=== PATIENT | male | born 1935 | race Caucasian/White ===

== ENCOUNTER 2016-12-16 09:46 | Emergency (ER) | payer MEDICARE, OTHER ==
[~2016-12-16] VITALS: Ht 170.2 cm; Wt 71.8 kg
[~2016-12-16 09:46] MED LIST: ACET-62 PO; AMIO200T2 PO; ASPI-558 PO; ATOR20TA59 PO; CALC1TAB PO; CLOP75TA PO; DOCU100C19 PO; EYE15DRO BOTH EYES; EYEPROMISE PO; FURO20TA4 PO; LEVO100T12 PO; MULT-447 PO; NITR0.4T39 SL; POTA10TA10 PO; SODIUM CHLORIDE 5% BOTH EYES; WARF2TAB6 PO
--- OUTSIDE RECORDS SUMMARY | 2016-12-16 09:52 | XMS REPORT | Continuity of Care Document ---
Author Author [facility] Organization [facility] Address Unknown Phone Unavailable Allergies Active Description Code Type Severity Reaction Onset Reported/Identified Relationship to Patient Clinical Status Yes benazepril NKMA N/A angioedema 01/14/2014 Yes telmisartan NKMA N/A hives 01/14/2014 Yes beta blockers NKMA N/A [id number] 03/06/2014 Medications Medication Packaging Start Date Stop Date Route Dosage Sig diltiazem(diltiazem 120 mg oral tablet) 1 tabs 02/18/201403/10 Oral 120 mg 1 tabs, Oral, BID, 60 tabs aspirin(aspirin) 03/06/2014 Oral 81 mg 81 mg, Oral, Daily levothyroxine(levothyroxine 100 mcg (0.1 mg) oral tablet) 1 tabs 03/06/2014 11/19/2014 Oral 100 mcg 1 tabs, Oral, Daily calcium gluconate(calcium gluconate 500 mg oral tablet) 1 tabs 03/06/2014 Oral 500 mg 500 mg=1 tabs, Oral, BID, 0 Refill(s) diltiazem(diltiazem 120 mg oral tablet) 1 tabs 03/10/201406/18 Oral 120 mg 1 tabs, Oral, BID, take 1.5 tabs bid, 180 tabs diltiazem(diltiazem 120 mg oral tablet) 09/15/20142014 See Instructions, 1.5 tabs Oral BID 90 days, 135 tabs pneumococcal 13-valent conjugate vaccine(pneumococcal 13- valent conjugate vaccine) 0.5 mL 11/18/2014 11/18/2014 IntraMuscular 0.5 mL , IntraMuscular, Once levothyroxine(levothyroxine 100 mcg (0.1 mg) oral tablet) 11/19/2014 11/24/2015 See Instructions, TAKE 1 BY MOUTH EVERY DAY., 90 unknown unit mupirocin topical(Bactroban) 1 greg 01/28/2015 02/04/2015 Nasal 1 greg, Nasal, BID allopurinol(Zyloprim) 2 tabs 01/28/2015 02/04/2015 Oral 600 mg 600 mg=2 tabs, Oral, Daily acetaminophen(acetaminophen) 1 supp 01/28/2015 02/04/2015 Rectal 650 mg 650 mg=1 supp, Rectal, q4hr, PRN: Pain Mild (1-3) zolpidem(Ambien) 1 tabs 01/28/2015 02/04/2015 Oral 5 mg 5 mg=1 tabs, Oral, Bedtime (once a day), PRN: Insomnia sodium chloride, hypertonic, ophthalmic(Moon 128 5% ophthalmic solution) 1 drops 02/01/2015 Eye-Both 1 drops, Eye-Both, Bedtime (once a day), 0 Refill(s) levothyroxine(levothyroxine) 1 tabs 02/04/2015 02/12/2015 Oral 100 mcg 100 mcg=1 tabs, Oral, Daily metoclopramide(Reglan) 2 mL 02/04/2015 02/12/2015 IV Push 10 mg 10 mg=2 mL, IV Push, q6hr, PRN: Nausea HYDROcodone-acetaminophen([place] 5 mg-325 mg oral tablet) 02/04/2015 02/12/2015 Oral 1-2 tabs, Oral, q4hr, PRN: Pain Moderate (4-6) docusate(Colace) 2 caps 02/04/2015 02/12/2015 Oral 200 mg 200 mg=2 caps, Oral, Daily morphine(morphine) 02/04/2015 02/12/2015 IV Push 2-4 mg, IV Push, q2hr, PRN: Pain Severe (7-10) ondansetron(Zofran) 2 mL 02/04/2015 02/12/2015 IV Push 4 mg 4 mg= 2 mL, IV Push, q6hr, PRN: Nausea glucagon(glucagon) 1 mL 02/04/2015 02/12/2015 IntraMuscular 1 mg 1 mg=1 mL, IntraMuscular, As Indicated, PRN: Hypoglycemia/Low Blood Sugar Al hydroxide/Mg hydroxide/simethicone(Maalox Advanced Maximum Strength oral suspension) 15 mL 02/04/2015 02/12/2015 Oral 15 mL, Oral, q4hr, PRN: GERD/Heartburn Sodium Chloride 0.9%(Sodium Chloride 0.9% 250 mL) 250 mL 02/04/2015 02/05/2015 IV 10 mL/hr, IV polyethylene glycol 3350(MiraLax) 1 packets 02/04/20152014 Oral 17 g 17 g=1 packets, Oral, Daily albuterol(albuterol 5 mg/mL (0.5%) inhalation solution) 0.5 mL 02/04/2015 02/07/2015 NEB 2.5 mg 2.5 mg=0.5 mL, NEB, q4hr (scheduled), PRN: Other (See Comment) Dextrose 50% in Water(Dextrose 50% in Water Injection) 25 mL 02/04/2015 02/12/2015 IV Push 12.5 g 12.5 g=25 mL, IV Push, q15min, PRN: Hypoglycemia/Low Blood Sugar Dextrose 10% in Water(Dextrose 10% in Water 250 mL) 250 mL 02/04/2015 02/05/2015 IV 50 mL/hr, IV heparin(heparin) 1 mL 02/04/2015 02/12/2015 SubCutaneous 5,000 units 5,000 units=1 mL, SubCutaneous, TID senna(Senokot) 1 tabs 02/04/2015 02/12/2015 Oral 8.6 mg 8.6 mg=1 tabs, Oral, BID acetaminophen(acetaminophen) 1 supp 02/04/2015 02/12/2015 Rectal 650 mg 650 mg=1 supp, Rectal, q4hr, PRN: Fever aspirin(aspirin) 1 tabs 02/04/2015 02/12/2015 Oral 81 mg 81 mg= 1 tabs, Oral, With Breakfast magnesium sulfate(magnesium sulfate) 100 mL 02/04/20152014 IV Piggyback 4 g 4 g=100 mL, 25 mL/hr, IV Piggyback, Daily, PRN: Other (See Comment) potassium chloride(potassium chloride 10 mEq/50 mL intravenous solution) 50 mL 02/04/2015 02/06/2015 IV Piggyback 10 mEq 10 mEq=50 mL, 50 mL/hr, IV Piggyback, q1hr, PRN: Other (See Comment) calcium carbonate(calcium carbonate) 2 tabs 02/04/20152014 Oral 2,500 mg 2,500 mg=2 tabs, Oral, TID, PRN: Other (See Comment) calcium gluconate(calcium gluconate) 10 mL 02/04/20152014 IV Piggyback 1,000 mg 1,000 mg=10 mL, 50 mL/hr, IV Piggyback, Once albumin human(albumin human 5% intravenous solution) 500 mL 02/04/2015 02/04/2015 IV Piggyback 25 g 25 g=500 mL, 250 mL/hr, IV Piggyback, Once albumin human(albumin human 5% intravenous solution) 250 mL 02/04/2015 02/04/2015 IV Piggyback 12.5 g 12.5 g=250 mL, 250 mL/hr, IV Piggyback, Once sodium bicarbonate(sodium bicarbonate 8.4% intravenous solution) 50 mL 201402/04/2015 IV Push 50 mEq 50 mEq=50 mL, IV Push, Once albumin human(albumin human 5% intravenous solution) 500 mL 02/04/2015 02/04/2015 IV Piggyback 25 g 25 g=500 mL, 500 mL/hr, IV Piggyback, Once famotidine(Pepcid) 1 tabs 02/05/2015 02/12/2015 Oral 20 mg 20 mg= 1 tabs, Oral, q12hr furosemide(Lasix) 2 mL 02/05/2015 02/12/2015 IV Push 20 mg 20 mg =2 mL, IV Push, BID atorvastatin(Lipitor) 1 tabs 02/05/2015 02/12/2015 Oral 20 mg 20 mg=1 tabs, Oral, Daily tamsulosin(Flomax) 1 caps 02/05/2015 02/12/2015 Oral 0.4 mg 0.4 mg=1 caps, Oral, Daily albumin human(albumin human 5% intravenous solution) 250 mL 02/06/2015 02/06/2015 IV Piggyback 12.5 g 12.5 g=250 mL, IV Piggyback, Once nitroglycerin(Nitrostat 0.4 mg sublingual tablet) 1 tabs 02/06/2015 02/12/2015 SubLingual 0.4 mg 0.4 mg=1 tabs, SubLingual, q5min, PRN: Angina/ Chest Pain ibuprofen(ibuprofen) 1 tabs 02/06/2015 02/12/2015 Oral 200 mg 200 mg=1 tabs, Oral, TID, PRN: Pain Moderate (4-6) amiodarone(amiodarone) 3 mL 02/06/2015 02/07/2015 IV Piggyback 150 mg 150 mg=3 mL, 600 mL/hr, IV Piggyback, Once lactulose(lactulose) 30 mL 02/07/2015 02/10/2015 Oral 20 g 20 g= 30 mL, Oral, TID amiodarone(amiodarone) 1 tabs 02/08/2015 02/12/2015 Oral 200 mg 200 mg=1 tabs, Oral, Daily magnesium sulfate(magnesium sulfate) 50 mL 02/08/20152014 IV Piggyback 2 g 2 g=50 mL, 25 mL/hr, IV Piggyback, Once potassium chloride(potassium chloride 20 mEq oral tablet, extended release) 2 tabs 02/08/2015 02/08/2015 Oral 40 mEq 40 mEq=2 tabs, Oral, Once calcium gluconate(calcium gluconate) 20 mL 02/09/20152014 IV Piggyback 2 g 2 g=20 mL, 25 mL/hr, IV Piggyback, Once, PRN: Other (See Comment) amiodarone(amiodarone) 3 mL 02/09/2015 02/09/2015 IV Piggyback 150 mg 150 mg=3 mL, 600 mL/hr, IV Piggyback, Once metoprolol(Lopressor) 0.5 tabs 02/09/2015 02/12/2015 Oral 12.5 mg 12.5 mg=0.5 tabs, Oral, BID warfarin(Coumadin) 1 tabs 02/09/2015 02/09/2015 Oral 4 mg 4 mg=1 tabs, Oral, Once warfarin(Coumadin) 1 tabs 02/10/2015 02/10/2015 Oral 7.5 mg 7.5 mg=1 tabs, Oral, Once amiodarone(amiodarone) 1 tabs 02/10/2015 02/12/2015 Oral 200 mg 200 mg=1 tabs, Oral, Daily amiodarone(amiodarone) 1 tabs 02/11/2015 02/11/2015 Oral 200 mg 200 mg=1 tabs, Oral, Once warfarin(Coumadin) 1 tabs 02/11/2015 02/11/2015 Oral 5 mg 5 mg=1 tabs, Oral, Once phenol topical(Cepastat) 1 lozenges 02/11/2015 02/12/2015 Oral 1 lozenges, Oral, q2hr, PRN: Sore Throat potassium chloride(potassium chloride 10 mEq oral tablet, extended release) 1 tabs 02/12/2015 02/12/2015 Oral 10 mEq 10 mEq=1 tabs, Oral, Daily furosemide(Lasix) 1 tabs 02/12/2015 02/12/2015 Oral 20 mg 20 mg= 1 tabs, Oral, Daily acetaminophen(acetaminophen 325 mg oral tablet) 2 tabs 02/12/2015 Oral 650 mg 650 mg=2 tabs, Oral, q4hr, PRN: Fever, 0 Refill(s) amiodarone(amiodarone 200 mg oral tablet) 1 tabs 02/12/2015 Oral 200 mg 200 mg=1 tabs, Oral, Daily, 30 tabs, 0 Refill(s) atorvastatin(Lipitor 20 mg oral tablet) 1 tabs 02/12/201503/16 Oral 20 mg 20 mg=1 tabs, Oral, Daily, 30 tabs, 0 Refill(s) metoprolol(metoprolol tartrate 25 mg oral tablet) 0.5 tabs 02/12/2015 02/17/2015 Oral 12.5 mg 12.5 mg=0.5 tabs, Oral, BID, 30 tabs, 0 Refill(s) HYDROcodone-acetaminophen([place] 5 mg-325 mg oral tablet) 02/12/2015 04/15/2015 Oral 1-2 tabs, Oral, q4hr, PRN: Pain Moderate (4-6), 50 tabs , 0 Refill(s) potassium chloride(potassium chloride 10 mEq oral tablet, extended release) 1 tabs 02/12/2015 Oral 10 mEq 10 mEq=1 tabs, Oral, Daily, 30 tabs, 0 Refill(s) nitroglycerin(Nitrostat 0.4 mg sublingual tablet) 1 tabs 02/12/2015 SubLingual 0.4 mg 0.4 mg=1 tabs, SubLingual, q5min, PRN: Angina/Chest Pain , 25 tabs, 0 Refill(s) furosemide(Lasix 20 mg oral tablet) 1 tabs 02/12/20152015 Oral 20 mg 20 mg=1 tabs, Oral, Daily, 30 tabs, 0 Refill(s) docusate(Colace 100 mg oral capsule) 2 caps 02/12/20152014 Oral 200 mg 200 mg=2 caps, Oral, Daily, 60 caps, 0 Refill(s) famotidine(Pepcid 20 mg oral tablet) 1 tabs 02/12/20152014 Oral 20 mg 20 mg=1 tabs, Oral, q12hr, 60 tabs, 0 Refill(s) amiodarone(amiodarone 200 mg oral tablet) 1 tabs 02/12/2015 Oral 200 mg 200 mg=1 tabs, Oral, Once a Day (before meals), 60 tabs, 0 Refill(s) warfarin(warfarin 2 mg oral tablet) 1 tabs 03/16/20152014 Oral 2 mg 2 mg=1 tabs, Oral, Daily, take as directed, 100 tabs, 3 Refill(s) atorvastatin(Lipitor 20 mg oral tablet) 1 tabs 03/16/201510/11 Oral 20 mg 20 mg=1 tabs, Oral, Daily, 30 tabs, 6 Refill(s) warfarin(warfarin 2 mg oral tablet) 1 tabs 05/06/20152014 Oral 2 mg 2 mg=1 tabs, Oral, Daily, take as directed, 100 tabs, 1 Refill(s) atorvastatin(atorvastatin 20 mg oral tablet) 10/11/201503/13 See Instructions, TAKE 1 TABLET BY MOUTH EVERY DAY, 30 tabs, 4 Refill(s ) levothyroxine(levothyroxine 100 mcg (0.1 mg) oral tablet) 11/24/2015 02/21/2016 See Instructions, TAKE 1 BY MOUTH EVERY DAY., 90 unknown unit polyethylene glycol 3350(MiraLax) 01/14/2016 Oral g g, Oral , Daily, PRN: as needed for constipation, 0 Refill(s) levothyroxine(levothyroxine 100 mcg (0.1 mg) oral tablet) 02/21/2016 05/18/2016 See Instructions, TAKE 1 TABLET BY MOUTH EVERY DAY, 90 tabs atorvastatin(atorvastatin 20 mg oral tablet) 03/13/201609/12 See Instructions, TAKE 1 TABLET BY MOUTH EVERY DAY, 30 tabs, 5 Refill(s ) amiodarone(amiodarone 200 mg oral tablet) 1 tabs 04/14/2016 Oral 200 mg 200 mg=1 tabs, Oral, Once a Day (before meals), 90 tabs, 0 Refill(s) levothyroxine(levothyroxine 100 mcg (0.1 mg) oral tablet) 05/18/2016 08/23/2016 See Instructions, TAKE 1 TABLET BY MOUTH EVERY other day and 0.5 tab every other day lab in 2 months, 90 tabs clopidogrel(Plavix) 07/11/2016 Oral 75 mg 75 mg, Oral, Daily , 0 Refill(s) influenza virus vaccine, inactivated(influenza virus vaccine, inactivated) 0.5 mL 07/11/2016 07/11/2016 IntraMuscular 0.5 mL, IntraMuscular, Once levothyroxine(levothyroxine 100 mcg (0.1 mg) oral tablet) 08/23/2016 See Instructions, TAKE 1 TABLET BY MOUTH EVERY DAY, 90 tabs atorvastatin(atorvastatin 20 mg oral tablet) 09/12/2016 See Instructions, TAKE 1 TABLET BY MOUTH EVERY DAY, 30 tabs, 4 Refill(s) Problems Procedures Results Test Result Range Protime (INR) - 07/11/16 09:18 INR 1.9 NA 0.8-1.2 Prothrombin Time Venous seconds TSH with Reflex Free T4 - 07/11/16 09:18 TSH with Reflex Free T4 0.28 uIU/mL 0.35- 4.94 Free T4 - 07/11/16 09:18 Free T4 1.1 ng/dL 0.7-1.5 Encounters ACCT No. Visit Date/Time Discharge Status Pt. Type Provider Facility Loc./Unit Complaint [id number] 11/20/2013 09:09:00 11/20/2013 23 :59:59 CLS Outpatient
--- OUTSIDE RECORDS SUMMARY | 2016-12-16 09:52 | XMS REPORT | Referral Summary ---
Author Author [facility] Organization [facility] Address Unknown Phone Unavailable Care Team Providers Care Lead Military Analyst Name Role Phone Sinan Chu Primary Care Physician [phone] Encounter VC Date(s): 08/28/16 - 08/28/16 [facility] [address] [place] [id number] Discharge Diagnosis: Hypothyroidism Discharge Diagnosis: HTN (hypertension) Discharge Diagnosis: Syncope Discharge Diagnosis: Coronary atherosclerosis Discharge Disposition: 01-Home or Self Care Attending Physician: Hank Chu MD Vital Signs Most recent to 1 oldest [Reference Range]: Temperature Tympanic 36.5 degC [36.6-38.1 degC] *LOW* (08/28/16 11:15 AM) Peripheral Pulse 84 bpm Rate [60-100 bpm] (08/28/16 11:15 AM) Respiratory Rate 16 br/min [14-20 br/min] (08/28/16 11:15 AM) Blood Pressure 172/104 mmHg [90-140/60-90 mmHg] *HI* (08/28/16 11:15 AM) Problem List Condition Effective Dates Status Health Status Informant Acute Active pain(Confirmed) At risk for Active infection(Confirmed) 1 At risk for Active injury(Confirmed)2 At risk of pressure Active sore(Confirmed) Passed Active patient out(Confirmed) Bowel Active dysfunction(Confirme d)3 BPH(Confirmed) Active Cardiac Active disorder(Confirmed)4 Heart Active patient murmur(Confirmed) HTN Active (hypertension)(Confi rmed) Hypothyroidism(Confi Active rmed) Impaired skin Active integrity(Confirmed) 5 Ineffective airway Active clearance(Confirmed) 6 Knowledge Active deficit(Confirmed)7 Tissue perfusion Active alteration(Confirmed )8 1Problem added automatically by system based on initiation of At Risk for Infection in Nutrition Plan of Care 2Problem added automatically by system based on initiation of Risk for Injury Plan of Care 3Problem added automatically by system based on initiation of Bowel Dysfunction Plan of Care 4Problem added automatically by system based on initiation of Cardiac Output/ Ineffective Cardiac Perfusion Plan of Care 5Problem added automatically by system based on initiation of Impaired Skin Integrity Plan of Care 6Problem added automatically by system based on initiation of Ineffective Airway Clearance Plan of Care 7Problem added automatically by system based on initiation of Knowledge Deficit Plan of Care 8Problem added automatically by system based on initiation of Tissue Perfusion Cerebral Plan of Care Allergies, Adverse Reactions, Alerts Substance Reaction Severity Status benazepril angioedema Active beta blockers Pulse slow Active telmisartan hives Active Medications acetaminophen 325 mg oral tablet 650 mg 2 tabs, Oral, q4hr, Fever, 0 Refill(s) Start Date: 02/12/15 Status: Ordered amiodarone 200 mg oral tablet 200 mg 1 tabs, Oral, Once a Day (before meals), # 90 tabs, 0 Refill(s), Pharmacy : [facility] [id number], 1 tabs Oral Once a Day (before meals) Start Date: 04/14/16 Status: Ordered aspirin 81 mg, Oral, Daily, 0 Refill(s) Start Date: 03/06/14 Status: Ordered atorvastatin 20 mg oral tablet See Instructions, TAKE 1 TABLET BY MOUTH EVERY DAY, # 30 tabs, 5 Refill(s), eRx : [facility] [id number], TAKE 1 TABLET BY MOUTH EVERY DAY Start Date: 03/13/16 Status: Ordered calcium gluconate 500 mg oral tablet 500 mg 1 tabs, Oral, BID, 0 Refill(s) Start Date: 03/06/14 Status: Ordered Colace 100 mg oral capsule See Instructions, 2 CAPS ORAL DAILY, # 60 caps, 10 Refill(s), eRx: [facility] [id number], 2 CAPS ORAL DAILY Start Date: 07/19/15 Status: Ordered Eye Health Formula 1 caps, Oral, Daily, 0 Refill(s) Start Date: 03/06/14 Status: Ordered FreshKote 1 drops, Eye-Both, TID, 0 Refill(s) Start Date: 01/14/15 Status: Ordered levothyroxine 100 mcg (0.1 mg) oral tablet See Instructions, TAKE 1 TABLET BY MOUTH EVERY DAY, # 90 tabs, eRx: [facility] [id number], TAKE 1 TABLET BY MOUTH EVERY DAY Start Date: 08/23/16 Status: Ordered MiraLax g, Oral, Daily, as needed for constipation, 0 Refill(s) Start Date: 01/14/16 Status: Ordered Moon 128 5% ophthalmic solution 1 drops, Eye-Both, Bedtime (once a day), 0 Refill(s) Start Date: 02/01/15 Status: Ordered Nitrostat 0.4 mg sublingual tablet 0.4 mg 1 tabs, SubLingual, q5min, Angina/Chest Pain, # 25 tabs, 0 Refill(s), Pharmacy: [facility] [id number], 1 tabs SubLingual q5min,PRN:Angina/Chest Pain Start Date: 02/12/15 Status: Ordered Non-Formulary Med EYE PROMISE RESTORE - 1 TAB, Oral, Daily, 0 Refill(s) Start Date: 02/01/15 Status: Ordered Plavix 75 mg, Oral, Daily, 0 Refill(s) Start Date: 07/11/16 Status: Ordered potassium chloride 10 mEq oral tablet, extended release 10 mEq 1 tabs, Oral, Daily, # 30 tabs, 0 Refill(s), Pharmacy: [facility] [id number], 1 tabs Oral Daily Start Date: 02/12/15 Status: Ordered warfarin 2 mg oral tablet See Instructions, TAKE 1& 1/2 TABLETS BY MOUTH DAILY FOR 2 DAYS, THEN 1 TABLET BY MOUTH DAILY FOR 1 DAY, THEN REPEAT OR DOCTOR RECOMMENDS, # 100 tabs, 5 Refill(s), eRx: [facility] [id number], TAKE 1& 1/2 TABLETS BY MOUTH DAILY FOR 2 DAYS, THEN... 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 Plan repeat colonoscopy in 3 years (11/11/2011) letter set up Social History Social History Type Response Smoking Status Never smoker Assessment and Plan Extracted from: Title: Office Visit Note Author: Hank Chu MD Date: 08/28/16 Assessment/Plan 1.HTN (hypertension) Blood pressures running high here today I reviewed all of his readings at home and he's had some readings down into the 70s and 80s over 40s to 50s. During these episodes is when he often feels dizzy or lightheaded. I've recommended a follow-up with Dr. Jung. I'm concerned that he may be having further dysrhythmia despite his pacemaker that is contributing to these hypotensive episodes and may have contributed to his syncopal spell last week. We have made an appointment on 05 September. He'll continue to monitor his blood pressures and keep us posted on with her doing. 2.Hypothyroidism Chronic stable no change in current treatment. 3.Syncope Follow up with Dr. Jnug as mentioned above. He had questions as to whether these spells could be seizures. I told him that I thought it was unlikely but we'll see what Dr. Jnug says that if he recommends a neurology consult will help arrange that. 4.Coronary atherosclerosis Chronic relatively stable no signs of angina no change in current treatment.
--- OUTSIDE RECORDS SUMMARY | 2016-12-16 09:52 | XMS REPORT | Continuity of Care Document ---
Author Author URIAH [facility] Organization [facility] Address Unknown Phone Unavailable Support Name Relationship Address Phone SRINIVAS PICHARDO MD Caregiver [address] [place] [id number] Unavailable TOSIN DOWELL MD Caregiver [address] [place] [address] Unavailable VARGHESE LACKEY Next Of Kin [address] [place] [address] Insurance Providers Guarantor Carli Lackey Address [address] [place] [address] Email [email or web address] Payer Medicare Policy Number [id number] Subscriber's Name Carli Lackey Relationship 18 Self Payer [facility] Policy Number [id number] Subscriber's Name Carli Lackey Relationship 18 Self Group Number [id number] Advance Directives Directive Response Recorded Date/Time Advanced Directives Type DPOA for Healthcare 08/22/16 8:20am Chief Complaint and Reason for Visit Chief Complaint Syncope Reason for Visit [id number] Problems Active Problems Medical Problem Onset Date Status Aortic stenosis, severe Unknown Chronic Bradycardia Unknown Acute Carotid bruit Unknown Acute Complete heart block Unknown Acute Constipation Unknown Acute Coronary artery disease Unknown Chronic Essential (primary) hypertension Unknown Chronic Heart murmur on physical examination Unknown Acute Hypothyroidism Unknown Chronic 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 Paroxysmal atrial fibrillation Unknown Chronic Symptomatic bradycardia Unknown Acute Syncopal episodes Unknown Acute Syncope Unknown Acute Surgical Problem Onset Date Status 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 81 Mg Oral Daily 11/11/08 Atorvastatin Calcium 20 Mg Tablet 1 Tab Oral Bedtime 02/28/16 Calcium Carbonate/Vitamin D3 (Caltrate 600 + D Tablet) 1 Each Tablet 1 Tab Oral Twice A Day 01/09/15 Clopidogrel Bisulfate (Plavix) 75 Mg Tablet 75 Mg Oral Daily 30 Days 30 Tablet 06/27/16 Docusate Sodium (Doc-Q-Lace) 100 Mg Capsule 1 Cap Oral Daily as needed for Constipation 03/21/16 Eye Lubricant Combination No.1 (Freshkote) 15 Ml Drops 1 Drop Ophthalmic Daily 15 01/09/15 Eyepromise 1 Tab Oral Daily 01/09/15 Furosemide 20 Mg Tablet 1 Tab Oral Every Other Day 02/28/16 Levothyroxine Sodium 100 Mcg Tablet 1 Tab Oral Before Breakfast Once daily before breakfast 02/28/16 Multivitamin With Minerals (Men's One Daily) 1 Each Tablet 1 Tab Oral Daily 01/09/15 Nitroglycerin 0.4 Mg Tab.subl 0.4 Mg Sublingual as needed for Chest Tightness 03/21/16 Potassium Chloride (Klor-Con 10) 10 Meq Tablet.er 1 Tab Oral Every Other Day 02/28/16 Sodium Chloride 5% 1 Drop Both Eyes Bedtime 02/28/16 Warfarin Sodium 2 Mg Tablet 1 Tab Oral As Directed 90 Tablet 2MG EVERY OTHER DAY, 3MG ON OTHER DAY (EVERY OTHER DAY) 02/28/16 Past Home Medications Medication Directions Ordered Status Acetaminophen 500 Mg Tablet, 1 Tab Oral Every 6 Hours 03/21/16 Discontinued Amlodipine Besylate 5 Mg Tablet, 5 Mg Oral Daily 03/17/16 Discontinued Amlodipine Besylate (Norvasc) 5 Mg Tablet, 5 Mg Oral Daily 01/12/15 Discontinued Amlodipine Besylate (Norvasc) 5 Mg Tablet, 5 Mg Oral 1/2 Daily 11/11/08 Discontinued Benazepril Hcl 20 Mg Tablet, 20 Mg Oral Daily 11/11/08 Discontinued Diltiazem Hcl (Cartia Xt) 120 Mg Cap.sr.24h, 180 Mg Oral Twice A Day Discontinued Levothyroxine Sodium 25 Mcg Tablet, 0.1 Mg Oral Daily 11/11/08 Discontinued Polyethylene Glycol 3350 (Miralax) 17 Gm Powd.pack, 1 Packet Oral Daily 03/21 Discontinued Red Yeast Rice Extract (Red Yeast Rice) 600 Mg Capsule, 600 Mg Oral Twice A Day 02/23/12 Discontinued Saw Seymour 1,000 Mg Capsule, 1000 Mg Oral Daily 11/11/08 Discontinued Saw Seymour Fruit (Saw Seymour) 450 Mg Capsule, Daily 01/09/15 Discontinued Tamsulosin Hcl (Flomax) 0.4 Mg Cap.sr.24h, 0.4 Mg Oral Q O D 11/11/08 Discontinued Social History Social History Problem Response Recorded Date/Time Onset Date Status Hx Substance Use No 08/22/2016 8:42am Not Applicable Not Applicable Hx Alcohol Use No 08/22/2016 8:42am Not Applicable Not Applicable Has the pt used tobacco in the last 12 months No 06/23/2016 9:06am Not Applicable Not Applicable Tobacco Usage none 02/28/2016 2:02pm Not Applicable Not Applicable Query Response Start Date Stop Date Smoking Status Never smoker Hospital Discharge Instructions No hospital discharge instructions. Plan of Care Discharge Date 08/22/16 11:28am Disposition 01 DISCHARGED HOME, SELF-CARE Condition at Discharge Improved Instructions/Education Provided Fainting Orthostatic Hypotension Prescriptions See Medication Section Referrals TOSNI DOWELL MD Order Date: 2 Days Address: [address] [place] [address] [phone] Note: Additional Instructions/Education 1) DRINK PLENTY OF FLUIDS ESPECIALLY WATER 2) CONTINUE HOME MEDICATIONS DIRECTED 3) FOLLOW UP WITH DR. DOWELL IN NEXT 2-3 DAYS FOR RE-EVALUATION 4) RETURN TO ER FOR WORSENING SYMPTOMS OR FURTHER CONCERNS. Care Plan and Goals Physician Care Plan Problem: 1) POSTURAL DIZZINESS WITH NEAR SYNCOPE Goal: Follow up with primary care provider 1) DR. DOWELL Instructions: Take medications and follow care plan as discussed/written Functional Status No functional status results. Allergies, Adverse Reactions, Alerts Allergen Type Severity Reaction Status Last Updated Beta-Blockers (Beta-Adrenergic Bloc Allergy Unknown Active 08/22/16 Amlodipine Allergy Unknown Active 08/22/16 Immunizations Query Response on File Recorded Date/Time Hx Influenza Vaccination No 06/23/16 9:06am Hx Pneumococcal Vaccination Y 201306/23/16 9:06am Hx Influenza Vaccination No 06/23/16 9:06am Vital Signs Acute Vital Signs Vital Response Date/Time Temperature (Fahrenheit) 97.6 deg F (96.8 - 99.1) 08/22/2016 11:28am Temperature (Calculated Celsius) 36.84648 degrees C (36.0 - 37.3) 08/22/2016 11:28am Temperature Source Oral 06/26/2016 5:25pm Pulse Rate (adult) 60 bpm (60 - 100) 08/22/2016 11:28am Respiratory Rate 14 breaths/min (10 - 20) 08/22/2016 11:28am O2 Sat by Pulse Oximetry 99 % (90 - 100) 08/22/2016 11:28am Oxygen Delivery Method Room Air 06/26/2016 5:25pm Oxygen Delivery Method Room Air 06/27/2016 8:01am Blood Pressure 167/85 mm Hg 08/22/2016 11:28am Blood Pressure Source Automatic Cuff 06/27/2016 8:01am Height (Feet) 5 feet 08/22/2016 8:20am Height (Inches) 9.00 inches 08/22/2016 8:20am Weight (Kilograms) 70.900 kg 08/22/2016 8:20am Body Mass Index (BMI) 23.0 08/22/2016 8:20am Results Laboratory Results Test Name Result Units Flags Reference Collection Date/Time Result Date/ Time Comments Prothromb Time International Ratio 1.16 0.99-1.21 06/26/2016 2:54pm 06/26/2016 3:20pm THERAPUTIC RANGE=2.00-3.00 FOR ANTI-THROMBOSIS THERAPUTIC RANGE=2.50-3.50 FOR IMPLANTED VALVE White Blood Count 8.7 T/MM3 4.5-11.0 08/22/2016 9:03am 08/22/2016 9: 19am Red Blood Count 4.50 M/MM3 4.50-5.90 08/22/2016 9:03am 08/22/2016 9: 19am Hemoglobin 12.0 GM/DL L 13.5-17.5 08/22/2016 9:03am 08/22/2016 9:19am Hematocrit 36.8 % L 41-53 08/22/2016 9:03am 08/22/2016 9:19am Mean Corpuscular Volume 81.8 UM3 80-100 08/22/2016 9:03am 08/22/2016 9: 19am Mean Corpuscular Hemoglobin 26.7 UUG 26-34 08/22/2016 9:03am 2015 9:19am Mean Corpuscular Hemoglobin Concent 32.6 GM/DL 31-37 08/22/2016 9:03am 08/22/2016 9:19am RDW Standard Deviation 57.2 FL H 36.9-50.2 08/22/2016 9:03am 08/22/2016 9:19am Platelet Count 394 T/MM3 130-400 08/22/2016 9:03am 08/22/2016 9:19am Mean Platelet Volume 9.7 UM3 9.4-12.4 08/22/2016 9:03am 08/22/2016 9: 19am Neutrophils (%) (Auto) 48.8 % 33-66 08/22/2016 9:03am 08/22/2016 9: 19am Lymphocytes (%) (Auto) 40.5 % 23-45 08/22/2016 9:03am 08/22/2016 9: 19am Monocytes (%) (Auto) 5.0 % 0-9.0 08/22/2016 9:03am 08/22/2016 9:19am Eosinophils (%) (Auto) 4.7 % H 0-4 08/22/2016 9:03am 08/22/2016 9:19am Basophils (%) (Auto) 0.9 % 0-2 08/22/2016 9:03am 08/22/2016 9:19am Immature Granulocyte % (Auto) 0.1 % 0.0-0.5 08/22/2016 9:03am 2015 9:19am Absolute Neutrophils (auto) 4.2 T/MM3 1.8-7.7 08/22/2016 9:03am 2015 9:19am Absolute Lymphocytes (auto) 3.5 T/MM3 1-4.8 08/22/2016 9:03am 2015 9:19am Absolute Monocytes (auto) 0.4 T/MM3 0-0.8 08/22/2016 9:03am 08/22/2016 9:19am Absolute Eosinophils (auto) 0.4 T/MM3 0-0.5 08/22/2016 9:03am 2015 9:19am Absolute Basophils (auto) 0.1 T/MM3 0-0.2 08/22/2016 9:03am 08/22/2016 9:19am Absolute Immature Granulocyte (auto 0.01 T/MM3 0.00-0.03 08/22/2016 9: 03am 08/22/2016 9:19am Icterus Index < 2 0-7 08/22/2016 9:0308/22/2016 9:30am Chemistry Specimen Hemolysis < 15 0-25 08/22/2016 9:0308/22/2016 9 :30am 0-25: Specimen Exhibited No Hemolysis. Turbidity < 20 0-20 08/22/2016 9:03am 08/22/2016 9:30am Sodium Level 144 MEQ/L 134-144 08/22/2016 9:03am 08/22/2016 9:30am Potassium Level 4.3 MEQ/L 3.6-5 08/22/2016 9:03am 08/22/2016 9:30am Chloride Level 106 MEQ/L 98-107 08/22/2016 9:03am 08/22/2016 9:30am Carbon Dioxide Level 24 MEQ/L 22-30 08/22/2016 9:03am 08/22/2016 9: 30am Anion Gap 14 MEQ/L 5-15 08/22/2016 9:03am 08/22/2016 9:30am Blood Urea Nitrogen 16.0 MG/DL 9-20 08/22/2016 9:03am 08/22/2016 9: 30am Creatinine 1.4 MG/DL 0.8-1.5 08/22/2016 9:0308/22/2016 9:30am BUN/Creatinine Ratio 11 RATIO 6-26 08/22/2016 9:0308/22/2016 9:30am Glomerular Filtration Rate Calc 49 08/22/2016 9:0308/22/2016 9: 30am Glucose Level 116 MG/DL H 75-110 08/22/2016 9:0308/22/2016 9:30am Calculated Osmolality 279 MOSM/KG 261-280 08/22/2016 9:0308/22/2016 9:30am Calcium Level 9.5 MG/DL 8.4-10.2 08/22/2016 9:0308/22/2016 9:30am Total Bilirubin 0.50 MG/DL 0.20-1.30 08/22/2016 9:0308/22/2016 9: 30am Alkaline Phosphatase 62 U/L 38-126 08/22/2016 9:03am 08/22/2016 9:30am Total Protein 7.2 G/DL 6.3-8.2 08/22/2016 9:03am 08/22/2016 9:30am Albumin 4.0 G/DL 3.5-5.0 08/22/2016 9:03am 08/22/2016 9:30am Globulin 3.2 G/DL 2.4-3.6 08/22/2016 9:03am 08/22/2016 9:30am Albumin/Globulin Ratio 1.3 RATIO 1.1-2.2 08/22/2016 9:03am 08/22/2016 9 :30am Aspartate Amino Transf (AST/SGOT) 33 U/L 17-59 08/22/2016 9:03am 2015 9:30am Alanine Aminotransferase (ALT/SGPT) 41 U/L 21-72 08/22/2016 9:03am 02/2016 9:30am Troponin I 0.064 ng/ml 0-0.12 08/22/2016 9:0308/22/2016 9:41am Troponin values with a difference of 55% increase from orginal troponin value represent a true biological DELTA value. (%increase Calc=Orginal Troponin value, divided by subsequent Troponin value, multiplied by 100) Thyroid Stimulating Hormone (TSH) 6.21 MIU/L H 0.47-4.68 08/22/2016 9: 03am 08/22/2016 10:00am Urine Collection Type CLEANCATCH-MIDSTREAM 08/22/2016 9:032015 10:18am Urine Color YELLOW YELLOW 08/22/2016 9:03am 08/22/2016 10:18am Urine Turbidity CLEAR CLEAR 08/22/2016 9:0308/22/2016 10:18am Urine Specific K[place]um 1.015 1.015-1.025 08/22/2016 9:03am 2015 10:18am Urine pH 8.0 5.0-8.0 08/22/2016 9:0308/22/2016 10:18am Urine Leukocyte Esterase NEGATIVE NEGATIVE 08/22/2016 9:032015 10:18am Urine Nitrite NEGATIVE NEGATIVE 08/22/2016 9:03am 08/22/2016 10:18am Urine Protein NEGATIVE NEGATIVE 08/22/2016 9:03am 08/22/2016 10:18am Urine Glucose (UA) NEGATIVE NEGATIVE 08/22/2016 9:03am 08/22/2016 10: 18am Urine Ketones NEGATIVE NEGATIVE 08/22/2016 9:03am 08/22/2016 10:18am Urine Urobilinogen 0.2 EU/DL NORMAL 08/22/2016 9:03am 08/22/2016 10: 18am Urine Bilirubin NEGATIVE NEGATIVE 08/22/2016 9:03am 08/22/2016 10: 18am Urine Blood NEGATIVE NEGATIVE 08/22/2016 9:03am 08/22/2016 10:18am Urinalysis Comment MICROSCOPIC NOT IND. 08/22/2016 9:03am 2015 10:18am Name: CARLI LACKEY Unit #: [id number] : 1935 Sex: M Admit Date: Loc / Svc: ED Discharge Date: DIAGNOSTIC IMAGING REPORT Report #: [id number] [facility] [place] Indication: ITS.REASON: DIZZINESS, NEAR SYNCOPAL EPISODE PROCEDURE: CT HEAD W/O CONTRAST: Encounter: Initial Comparison: January 10, 2015 Technique: Axial CT images through the head were performed without contrast. FINDINGS: The ventricles are of normal size, shape, and contour for the patient's age. There are scattered areas of low attenuation in the white matter which most likely represent changes from chronic microvascular ischemia. Prominent perivascular space noted incidentally on the right which is unchanged. The brainstem, cerebellum, and cerebral hemispheres otherwise have a normal morphology and CT attenuation. There is no evidence of midline displacement. No hemorrhage, signs of acute territorial stroke, mass effect, mass lesions, or edema is evident. The visualized portions of the skull base, midface, and calvarium demonstrate no abnormality. The paranasal sinuses are well aerated and free of significant disease. The tympanic and mastoid cavities appear normal. IMPRESSION: No acute intracranial abnormality or hemorrhage. . Procedures Procedure Status Date Provider(s) ROUTINE VENIPUNCTURE Completed 06/26/16 ROUTINE VENIPUNCTURE Completed 06/26/16 METABOLIC PANEL TOTAL CA Completed 06/26/16 METABOLIC PANEL TOTAL CA Completed 06/26/16 COMPLETE CBC W/AUTO DIFF WBC Completed 06/26/16 COMPLETE CBC W/AUTO DIFF WBC Completed 06/26/16 PROTHROMBIN TIME Completed 06/26/16 ELECTROCARDIOGRAM TRACING Completed 06/26/16 090153AGE-OFLJAOC ITEM OR SERVICE Completed 06/26/16 880736VKX-XUXLIPH ITEM OR SERVICE Completed 06/26/16 333541RZL-EBDBWLC ITEM OR SERVICE Completed 06/26/16 501841OZF-DYOUKEI ITEM OR SERVICE Completed 06/26/16 981292"CLOSURE DEVICE, VASCULAR (IMPLANTABLE/INSERTABLE)" Completed 06/26/16 852676DLAFU WIRE Completed 06/26/16705783"STENT, COATED/COVERED, WITH DELIVERY SYSTEM" Completed 06/26/16"CATHETER, GUIDING (MAY INCLUDE INFUSION/PERFUSION CAP Completed 779547HIQSA THAN PEEL-AWAY Completed 06/26/16 PLC DRUG-ELT STENT&ANGIO,SNG Completed 06/26/16 ABBY BYRNE MD 947108"INJECTION, HYDRALAZINE HCL, UP TO 20 MG" Completed 06/26/16"INJECTION, HEPARIN SODIUM, PER 1000 UNITS" Completed 06/26/16"INJECTION, HEPARIN SODIUM, PER 1000 UNITS" Completed 06/26/16"INJECTION, MIDAZOLAM HYDROCHLORIDE, PER 1 MG" Completed 06/26/16"INJECTION, FENTANYL CITRATE, 0.1 MG" Completed 06/26/16"INFUSION, NORMAL SALINE SOLUTION , 1000 CC" Completed 06/26/16"INFUSION, NORMAL SALINE SOLUTION , 1000 CC" Completed 06/26/16"LOW OSMOLAR CONTRAST MATERIAL, 300-399 MG/ML IODINE C Completed Encounters Encounter Location Arrival/Admit Date Discharge/Depart Date Attending Provider Departed Emergency Room [facility] 08/22/16 8:42am 08/22/16 11: 28am SRINIVAS PICHARDO MD Departed Clinic [facility] 06/26/16 12:48pm 06/27/16 10:15am ABBY BYRNE MD Recent Diagnosis
[2016-12-16 09:53] VITALS: TEMP 97.5; Ht 170.2 cm; Wt 71.8 kg
--- OUTSIDE RECORDS SUMMARY | 2016-12-16 09:53 | XMS REPORT | Referral Summary ---
Author Author [facility], [facility] Organization [facility] Address Unknown Phone Unavailable Care Team Providers Care [employer] Treatment [employer] Operator Name Role Phone Sinan Chu Primary Care Physician [phone] Encounter VC Date(s): 10/10/16 - 10/10/16 [facility] [address] [place] [address] Discharge Diagnosis: Near syncope Discharge Diagnosis: Atrial fibrillation Discharge Diagnosis: Hyperlipidemia Discharge Diagnosis: Hypothyroidism Discharge Diagnosis: HTN (hypertension) Discharge Diagnosis: Aortic stenosis Discharge Disposition: 01-Home or Self Care Attending Physician: Hank Chu MD Admitting Physician: Hank Chu MD Vital Signs Most recent to 1 oldest [Reference Range]: Temperature Tympanic 35.7 degC [36.6-38.1 degC] *LOW* (10/10/16 8:18 AM) Peripheral Pulse 68 bpm Rate [60-100 bpm] (10/10/16 8:18 AM) Respiratory Rate 20 br/min [14-20 br/min] (10/10/16 8:18 AM) Blood Pressure 124/68 mmHg [90-140/60-90 mmHg] (10/10/16 8:18 AM) Problem List Condition Effective Dates Status [...] # 90 tabs, 0 Refill(s), Pharmacy : [facility] [id number], 1 tabs Oral Once a Day (before meals) Start Date: 04/14/16 Status: Ordered aspirin 81 mg, Oral, Daily, 0 Refill(s) Start Date: 03/06/14 Status: Ordered atorvastatin 20 mg oral tablet See Instructions, TAKE 1 TABLET BY MOUTH EVERY DAY, # 30 tabs, 4 Refill(s), eRx : [facility] [id number] Start Date: 09/12/16 Status: Ordered Benadryl as needed for allergy symptoms, 0 Refill(s) Start Date: 10/10/16 Status: Ordered calcium gluconate 500 mg oral tablet 500 mg 1 tabs, Oral, BID, 0 Refill(s) Start Date: 03/06/14 Status: Ordered Colace 100 mg oral capsule See Instructions, 2 CAPS ORAL DAILY, # 60 caps, 10 Refill(s), eRx: [facility] [id number], 2 CAPS ORAL DAILY Start Date: 07/19/15 Status: Ordered Eye Health Formula 1 caps, Oral, Daily, 0 Refill(s) Start Date: 03/06/14 Status: Ordered FreshKote 1 drops, Eye-Both, TID, 0 Refill(s) Start Date: 01/14/15 Status: Ordered levothyroxine 100 mcg (0.1 mg) oral tablet See Instructions, TAKE 1 TABLET BY MOUTH EVERY DAY, # 90 tabs, eRx: [facility] [id number], TAKE 1 TABLET BY MOUTH EVERY DAY [...] Pain, # 25 tabs, 0 Refill(s), Pharmacy: [facility], 1 tabs SubLingual q5min,PRN:Angina/Chest Pain Start Date: 02/12/15 Status: Ordered Non-Formulary Med EYE PROMISE RESTORE - 1 TAB, Oral, Daily, 0 Refill(s) Start Date: 02/01/15 Status: Ordered Plavix 75 mg, Oral, Daily, 0 Refill(s) Start Date: 07/11/16 Status: Ordered potassium chloride 10 mEq oral tablet, extended release 10 mEq 1 tabs, Oral, Daily, # 30 tabs, 0 Refill(s), Pharmacy: [facility] [id number], 1 tabs Oral Daily Start Date: 02/12/15 Status: Ordered warfarin 2 mg oral tablet See Instructions, TAKE 1& 1/2 TABLETS BY MOUTH DAILY FOR 2 DAYS, THEN 1 TABLET BY MOUTH DAILY FOR 1 DAY, THEN REPEAT OR DOCTOR RECOMMENDS, # 100 tabs, 5 Refill(s), eRx: [facility] [id number], TAKE 1& 1/2 TABLETS BY MOUTH DAILY [...] Graft Coronary Artery with Valve 02/04/15 Replacement1 [place] [facility] Endoscopic (Left)2 02/04/15 Colonoscopy3 11/13/11 Cholecystectomy [...] Visit Note Author: Hank Chu MD Date: 10/10/16 Assessment/Plan 1.HTN (hypertension) Blood pressureis well controlled and he is not actually on antihypertensive medication at this time. He is actually having troublemore with low blood pressures. I encouraged him to continue to keep his fluid intake up. He is trying to drink 15water daily. We willcheck labwith his next INR. He'll continue to monitor his blood pressure and keep me informed. Follow-up in 3 months. Report card reviewed. Ordered: Office Visit Level 4 Est 38237 2.Hypothyroidism Most recent TSH is been stable no change in current treatment. Ordered: Office Visit Level 4 Est 28605 3.Hyperlipidemia Chronic relatively stable no change in current treatment is recommended. Report card reviewed and provided. Ordered: Office Visit Level 4 Est 06599 4.Near syncope He is having periods of hypotension as mentioned. We'll continue to monitor these. We discussed using medication to helpincrease his blood pressure at other times his pressures are normal and is concerned that he could do running high if we started him onthese medications. He'll continue to be careful with his activitywhen his blood pressures are running low. Ordered: Office Visit Level 4 Est 11125 5.Aortic stenosis This is followed by Dr. Jung by gabriel and his been stable. Ordered: Office Visit Level 4 Est 82597 6.Atrial fibrillation Chronic rate controlled and stable on anticoagulation therapy. Continue current treatment without change. Ordered: Office Visit Level 4 Est 76185 I've asked him to follow-up in 3 months he'll keep me posted if his blood pressures run lower.
--- OUTSIDE RECORDS SUMMARY | 2016-12-16 09:54 | XMS REPORT | Referral Summary ---
Author Author [facility] Organization [facility] Address Unknown Phone Unavailable Care Team Providers Care Hassock Maker Name Role Phone Sinan Chu Primary Care Physician [phone] Encounter Date(s): 07/11/16 - 07/11/16 [facility] [address] [place] [id number] Discharge Diagnosis: Hypothyroidism Discharge Diagnosis: CAD in [place] artery Discharge Diagnosis: Aortic stenosis Discharge Diagnosis: HTN (hypertension) Discharge Diagnosis: Atrial fibrillation Discharge Diagnosis: Hyperlipidemia Discharge Disposition: 01-Home or Self Care Attending Physician: Hank Chu MD Admitting Physician: Hank Chu MD Vital Signs Most recent to 1 oldest [Reference Range]: Temperature Tympanic 35.8 degC [36.6-38.1 degC] *LOW* (07/11/16 8:24 AM) Peripheral Pulse 68 bpm Rate [60-100 bpm] (07/11/16 8:24 AM) Respiratory Rate 18 br/min [14-20 br/min] (07/11/16 8:24 AM) Blood Pressure 158/94 mmHg [90-140/60-90 mmHg] *HI* (07/11/16 8:24 AM) Problem List Condition Effective Dates Status [...] # 90 tabs, 0 Refill(s), Pharmacy : [id number], 1 tabs Oral Once a Day (before meals) Start Date: 04/14/16 Status: Ordered aspirin 81 mg, Oral, Daily, 0 Refill(s) Start Date: 03/06/14 Status: Ordered atorvastatin 20 mg oral tablet See Instructions, TAKE 1 TABLET BY MOUTH EVERY DAY, # 30 tabs, 5 Refill(s), eRx : [id number], TAKE 1 TABLET BY MOUTH EVERY DAY Start Date: 03/13/16 Status: Ordered calcium gluconate 500 mg oral tablet 500 mg 1 tabs, Oral, BID, 0 Refill(s) Start Date: 03/06/14 Status: Ordered Colace 100 mg oral capsule See Instructions, 2 CAPS ORAL DAILY, # 60 caps, 10 Refill(s), eRx: [id number], 2 CAPS ORAL DAILY Start Date: 07/19/15 Status: Ordered Eye Health Formula 1 caps, Oral, Daily, 0 Refill(s) Start Date: 03/06/14 Status: Ordered FreshKote 1 drops, Eye-Both, TID, 0 Refill(s) Start Date: 01/14/15 Status: Ordered Lasix 20 mg oral tablet 20 mg 1 tabs, Oral, Daily, # 30 tabs, 0 Refill(s), Pharmacy: [id number], 1 tabs Oral Daily Start Date: 02/12/15 Status: Ordered levothyroxine 100 mcg (0.1 mg) oral tablet See Instructions, TAKE 1 TABLET BY MOUTH EVERY DAY, # 90 tabs, eRx: [id number], TAKE 1 TABLET BY MOUTH EVERY DAY Start Date: 05/18/16 Status: Ordered MiraLax g, Oral, Daily, as needed for constipation, 0 Refill(s) Start Date: 01/14/16 Status: Ordered Moon 128 5% ophthalmic solution 1 drops, Eye-Both, Bedtime (once a day), 0 Refill(s) Start Date: 02/01/15 Status: Ordered Nitrostat 0.4 mg sublingual tablet 0.4 mg 1 tabs, SubLingual, q5min, Angina/Chest Pain, # 25 tabs, 0 Refill(s), Pharmacy: [id number], 1 tabs SubLingual q5min,PRN:Angina/Chest Pain Start Date: 02/12/15 Status: Ordered Non-Formulary Med EYE PROMISE RESTORE - 1 TAB, Oral, Daily, 0 Refill(s) Start Date: 02/01/15 Status: Ordered Plavix 75 mg, Oral, Daily, 0 Refill(s) Start Date: 07/11/16 Status: Ordered potassium chloride 10 mEq oral tablet, extended release 10 mEq 1 tabs, Oral, Daily, # 30 tabs, 0 Refill(s), Pharmacy: [id number], 1 tabs Oral Daily Start Date: 02/12/15 Status: Ordered warfarin 2 mg oral tablet See Instructions, TAKE 1& 1/2 TABLETS BY MOUTH DAILY FOR 2 DAYS, THEN 1 TABLET BY MOUTH DAILY FOR 1 DAY, THEN REPEAT OR DOCTOR RECOMMENDS, # 100 tabs, 5 Refill(s), eRx: [id number], TAKE 1& 1/2 TABLETS BY MOUTH DAILY FOR 2 DAYS, THEN... Start Date: 02/18/16 Status: Ordered Results Coagulation Most recent to 1 oldest [Reference Range]: PT Venous (07/11/16 9:18 AM) INR [0.8-1.2] 1.9 1 *HI* (07/11/16 9:18 AM) 1Result Comment: Normal (no anticoagulant): 0.8 - 1.2 Units Routine Therapeutic Range: 2.0 - 3.0 Units High Risk Therapeutic Range: 2.5 - 3.5 Units Chemistry Most recent to 1 oldest [Reference Range]: T4 Free [0.7-1.5 1.1 ng/dL ng/dL] (07/11/16 9:18 AM) TSH with Reflex Free 0.28 T4 [0.35-4.94] *LOW* (07/11/16 9:18 AM) Immunizations Vaccine Date Refusal Reason influenza virus vaccine, inactivated 07/11/16 influenza virus vaccine, live 07/24/07 pneumococcal 13-valent conjugate vaccine 11/18/14 pneumococcal 23-polyvalent vaccine 06/07/06 tetanus-diphth toxoids (Td) adult/adol 07/05/98 zoster vaccine live 02/15/13 Procedures Procedure Date Related Diagnosis Body Site Bypass Graft Coronary Artery with Valve 02/04/15 Replacement1 [place] Vein Endoscopic (Left)2 02/04/15 Colonoscopy3 11/13/11 Cholecystectomy [...] Visit Note Author: Hank Chu MD Date: 07/11/16 Assessment/Plan 1.HTN (hypertension) Blood pressure is a little high here but can completely normal at home. No change in current therapy is recommended. Recheck in 3 months. Recent laboratory studies reviewed and report card reviewed and provided today. Ordered: Office Visit Level 4 Est 22426 2.Hypothyroidism He is due for TSH we'll check that todaycontinue current dosage without change for the time being. Ordered: Office Visit Level 4 Est 25428 3.CAD in [place] artery Recent stenting apparently went well no change in current treatment at this time Ordered: Office Visit Level 4 Est 10961 4.Atrial fibrillation Chronic rate controlled on chronic anticoagulation therapy no change in current treatment recommended. Ordered: Office Visit Level 4 Est 97515 5.Aortic stenosis This is chronic and stable followed by Dr. Jung. No change in current treatment. Ordered: Office Visit Level 4 Est 02033 6.Hyperlipidemia Recent laboratory studies show good control of lipids. No change in current treatment at this time. Flu shot recommended and provided today.
--- NOTE | 2016-12-16 10:06 | NUR ---
PROVIDER DR KINCAID AT BEDSIDE FOR H&P
[2016-12-16] MEDS ORDERED: ACET-62 PO (10:18)
[2016-12-16] MEDS ORDERED: CLOP75TA33 PO (10:20)
[2016-12-16] MEDS ORDERED: HYDR-4246 PO (10:22)
[2016-12-16] MEDS ORDERED: LEVO100T12 PO (10:25)
[2016-12-16] MEDS ORDERED: WARF2TAB6 PO (10:25)
[2016-12-16] MEDS ORDERED: TETR-47 BOTH EYES (10:28)
[2016-12-16] MEDS ORDERED: VIT-10 PO (10:28)
[2016-12-16] MEDS ORDERED: CALC-136 PO (10:30)
--- NOTE | 2016-12-16 10:37 | ERPDOC ---
Departure Disposition Decision Date: Dec 16, 2016 Disposition Decision Time: 10:39 Disposition: 01 DISCHARGED HOME, SELF-CARE Impression Impression Impression: Primary Impression: Laceration of hand Severity: Moderate Condition: Improved Seen By: Physician only Referrals: TOSIN DOWELL MD (Family) Patient Instructions: Animal Bite (ED) Problems/Meds/Labs Reviewed?: Yes Medications reviewed and manag: Yes Additional Instructions: change bandage as needed. follow up with PCP this next week. Follow up care ordered?: Yes Mental Status: Alert, Oriented HPI - Skin General General Chief Complaint: Animal Bite Stated Complaint: DOG BITE R HAND, BLEEDING Time Seen by Provider: 10:33 HPI - Skin General Initial Comments 81 yo gentleman with dog scratch to hand, occurred thurdsay evening. On coumadin for afib, inr 2.1 earlier this week and is typically stable. Allergies: Coded Allergies: Beta-Blockers (Beta-Adrenergic Bloc (Verified Allergy, Unknown, 12/16/16) amlodipine (Verified Allergy, Unknown, 12/16/16) Pt states BP and pulse drop to the point pt passes out shortly after administration of medication Past History Past Medical History Metabolic: hypercholesterolemia, hypertension, hypothyroidism Cardiac: A-fib, CAD, echocardiogram Hx Echocardiogram: No Surgical History General: gallbladder Cardiac: cardiac bypass, cardiac cath, pacemaker, valve replacement Family History Family PMH: FOUND: other Vaccines Hx Influenza Vaccination: No Hx Pneumococcal Vaccination: Yes (2013) Social History Substance Use Type: does not use Sexuality: female partner Current Occupational Status: retired Review of Systems Integumentary Skin: see HPI All other Systems All Other Systems: Reviewed and Negative Physical Exam General General Nourishment: well nourished, well developed, no acute distress General Body Habitus: well groomed Vitals and Pain Weight: Kilograms: 71.800 Height (feet): 5 Height (inches): 7.00 Triage Pain Scale: Normal Exams: Head: Normocephalic w/o trauma Chest/Resp: Clear all jacome, with good airflow, and symmetry bilaterally CV: Regular rate and rhythm, without murmur or gallop, Pulses 2+ all extremities, capillary refill, <2 seconds all ext., no pedal edema noted Abdomen: Bowel sounds positive, soft, non-tender, non-distended, no hepatosplenomegaly, masses or bruits noted Neurologic: Patient is alert, and oriented, cranial nerves, motor/sensory/ cerebellar, exams w/o gross deficits, to observation Psychiatric: Patient exhibits, appropriate attention, emotion and affect Musculoskeletal (brief) Comments dog bite visible on hand with several small 1/2 - 1 cm skin tears. Differential Diagnoses Considering: Abrasion, Cellulitis, Laceration, Other Progress Results/Orders Orders Procedure Category Date Status Time Tetanus,Diphth,A PHA 12/16/16 Complete Pertus (Tdap) (Adacel) 10:45 Medications Current ED Medications Diphtheria/ Tetanus/Acell Pertussis (Adacel) 0.5 ml O ONCE IM Last administered on 12/16/16t 10:44; Start 12/16/16 at 10:45; Stop 12/16/16 at 10:46; Status DC Progress Progress Wound on dorsum of right hand cleaned. Total 12cm lac / skin tear. Wound dried and closed with steristrip in usual fashion . Excellent hemostasis and skin aproximation noted. Bandage applied . Follow up with pcp sunday. Tdap ordered to make current. SHAYY KINCAID MD Dec 16, 2016 10:37
[2016-12-16] MEDS ORDERED: TETANUS,DIPHTH,a PERTUS (Tdap) 0.5 ML VIAL IM ONE (10:45)
--- OUTSIDE RECORDS SUMMARY | 2016-12-16 10:48 | XMS REPORT | Continuity of Care Document ---
Author Author [facility] Organization [facility] Address Unknown Phone Unavailable Allergies Active Description [...] mg=2 mL, IV Push, q6hr, PRN: Nausea HYDROcodone-acetaminophen(Narvon 5 mg-325 mg oral tablet) 02/04/2015 02/12/2015 [...] tabs, Oral, BID, 30 tabs, 0 Refill(s) HYDROcodone-acetaminophen(Narvon 5 mg-325 mg oral tablet) 02/12/2015 04/15/2015 [...] Status Pt. Type Provider Facility Loc./Unit Complaint [id number] 11/20/2013 09:09:00 11/20/2013 23 :59:59 CLS Outpatient
[2016-12-16 11:00] VITALS: BP 139/74; PULSE 59; RESP 18; O2SAT 98
== END 2016-12-16 11:00 | disposition home or self-care (01) ==
LOC: ED 09:46
DX: S61.451A Open bite of right hand, initial encounter (principal); Z79.01 Long term (current) use of anticoagulants; W54.0XXA Bitten by dog, initial encounter; Y93.9 Activity, unspecified; Y92.009 Unspecified place in unspecified non-institutional (private) residence as the place of occurrence of the external cause; Y99.8 Other external cause status
CPT/HCPCS: 90471; 90715